=== PATIENT | female | born 1950 | race Caucasian/White ===

== ENCOUNTER → 2017-02-03 | Outpatient (CLI) | payer BC ==
[~2017-02-03] MED LIST: ESTR0.3T PO; FAMO40TA6 PO; LRT5 PO
--- NOTE | 2017-02-11 10:38 | CODING QUERY NO DIAGNOSIS ---
TREATMENT RENDERED WITHOUT A DIAGNOSIS Dr. Reilly, To promote full compliance with coding requirements relating to patient care, physician participation is requested in all cases of medical records coder uncertainty. Please assist us with providing a diagnosis/symptom for the test(s) below: A diagnosis/symptom was not documented on your Order. A valid diagnosis/symptom is required to bill all insurances. Please remember that we are unable to code a diagnosis of rule out, probable, possible, questionable, or suspected. Tests that require a diagnosis: * URINE CULTURE DIAGNOSIS: DATE OF SERVICE: 02/03/17 Provider Signature: Date: Thank you [facility] Information Management Once completed, please kindly fax back to [phone] For questions please call [phone]
== END | disposition home or self-care (01) ==
LOC: C.LABSPEC 11:20
PROVIDERS: ATTEND Family Medicine
DX: N39.0 Urinary tract infection, site not specified (principal)

== ENCOUNTER → 2017-02-04 | Outpatient (CLI) | payer BC ==
[2017-02-04 17:07] LABS: BASO % 0.5 %; BASO ABS # 0.03 K/uL (0-0.2); COMPLETE YES; EOS % 3.1 %; HEMATOCRIT 41.3 % (37-47); IG% 0.2 %; LYMPH % 32.9 %; LYMPH ABS # 2.02 K/uL (1.2-3.4); MEAN CELL VOLUME 94.5 fL (80-100); MEAN CORPUSCULAR HEMOGLOBIN 32.7 pg (25-34); MEAN CORPUSCULAR HGB CONC 34.6 g/dl (32-36); MEAN PLATELET VOLUME 10.9 fL (7.4-10.4); MONO % 6.5 %; NEUT % 56.8 %; PLATELET COUNT 231 K/uL (130-400); RED BLOOD COUNT 4.37 M/uL (4.2-5.4); WHITE BLOOD COUNT 6.14 K/uL (4.8-10.8)
[2017-02-04 17:17] LABS: BLOOD UREA NITROGEN 14 mg/dl (7-18); CREATININE 0.98 mg/dl (0.60-1.20); GLUCOSE 95 mg/dl (70-99)
[2017-02-04 17:18] LABS: ALT/SGPT 18 U/L (12-78); AMYLASE 37 U/L (25-115); BUN/CREATININE RATIO 14.6 (10-20); CARBON DIOXIDE 27 mmol/L (21-32); CHLORIDE 107 mmol/L (98-107); CHOLESTEROL 238 mg/dl (0-200); POTASSIUM 3.9 mmol/L (3.5-5.1); SODIUM 142 mmol/L (136-145); TRIGLYCERIDES 218 mg/dl (0-150); VERY LOW DENSITY LIPOPROT CALC 44 mg/dl
[2017-02-04 17:26] LABS: ALKALINE PHOSPHATASE 58 U/L (45-117); AST/SGOT 13 U/L (15-37); CHOLESTEROL/HDL RATIO 5.1; HDL CHOLESTEROL 47 mg/dl; LDL CHOLESTEROL CALCULATED 147 mg/dl
== END | disposition home or self-care (01) ==
LOC: C.LABBC 12:38
PROVIDERS: ATTEND Family Medicine
DX: R10.10 Upper abdominal pain, unspecified (principal)

== ENCOUNTER → 2017-02-05 | Outpatient (CLI) | payer BC ==
[~2017-02-05] MED LIST changes: +OPTIRAY 320 IV PRN
--- NOTE | 2017-02-05 14:58 | DIAGNOSTIC IMAGING REPORT ---
CT SCAN OF THE ABDOMEN AND PELVIS WITH IV CONTRAST CLINICAL HISTORY: Left upper quadrant abdominal pain. COMPARISON STUDY: No priors. TECHNIQUE: Following the IV administration of 94 cc of Optiray 320, CT scan of the abdomen and pelvis is performed from the lung bases to the proximal femora. Images are reviewed in the axial, sagittal, and coronal planes. IV contrast was administered without complication. Automated dose control exposure was utilized. CT DOSE: 610.90 mGycm FINDINGS: Lung bases: The heart is normal in size and without pericardial effusion. The lung bases are clear. A tiny hiatal hernia is observed. Liver: The contrast-enhanced liver is normal in size, contour, and attenuation. There is no intrahepatic biliary ductal dilatation. The hepatic veins and portal veins are patent. Gallbladder: Calcified gallstones are identified. The gallbladder is otherwise normal in appearance. Spleen: Normal in size and attenuation. Pancreas: Unremarkable. Adrenal glands: Unremarkable. Kidneys: The contrast enhanced kidneys demonstrate mild cortical atrophy and are without hydronephrosis. The kidneys enhance symmetrically. Abdominal vasculature: The abdominal aorta is normal in course and caliber noting moderate atherosclerotic calcification. Bowel: The small bowel and colon are normal in course and caliber. There are scattered colonic diverticula without CT evidence of acute diverticulitis. Mild colonic fecal retention is noted. The appendix is well-visualized and normal. Peritoneum: There is no intraperitoneal free air or abdominal ascites. There is a small fat-containing umbilical hernia. Lymphadenopathy: None. Pelvic viscera: The bladder is normal as visualized. The uterus is surgically absent. A nabothian cyst is noted in the cervix. No adnexal lesion is seen. Skeletal structures: The skeletal structures are osteopenic. No lytic or blastic lesions are seen. There are bilateral pars defects at L5 with 9 mm of anterolisthesis and degenerative change at L5-S1. IMPRESSION: 1. There are no acute infectious or inflammatory findings in the abdomen or pelvis. 2. Cholelithiasis. 3. Additional findings as above. Electronically signed by: Sam Fall M.D. 02/05/2017 2:57 PM Dictated Date/Time: 02/05/2017 2:39 PM
== END | disposition home or self-care (01) ==
LOC: C.CTS 14:18
PROVIDERS: ATTEND Family Medicine
DX: R10.12 Left upper quadrant pain (principal); K80.20 Calculus of gallbladder without cholecystitis without obstruction

== ENCOUNTER 2017-02-28 13:29 | Emergency (ER) | payer BC ==
[~2017-02-28] VITALS: Ht 156.2 cm; Wt 69.0 kg
[~2017-02-28 13:29] MED LIST changes: -FAMO40TA6 PO; -OPTIRAY 320 IV PRN
[2017-02-28 13:39] VITALS: TEMP 36.6; Ht 156.2 cm; Wt 69.0 kg
[2017-02-28] MEDS ORDERED: FAMO40TA6 PO (15:08)
[2017-02-28 15:50] LABS: BASO % 0.6 %; BASO ABS # 0.05 K/uL (0-0.2); COMPLETE YES; EOS % 1.8 %; IG% 0.1 %; LYMPH % 31.2 %; LYMPH ABS # 2.54 K/uL (1.2-3.4); MEAN CELL VOLUME 94.3 fL (80-100); MEAN CORPUSCULAR HEMOGLOBIN 32.5 pg (25-34); MEAN CORPUSCULAR HGB CONC 34.4 g/dl (32-36); MEAN PLATELET VOLUME 10.7 fL (7.4-10.4); NEUT % 61.3 %; PLATELET COUNT 242 K/uL (130-400); RED BLOOD COUNT 4.56 M/uL (4.2-5.4); WHITE BLOOD COUNT 8.13 K/uL (4.8-10.8)
[2017-02-28 15:58] LABS: ALT/SGPT 24 U/L (12-78); AST/SGOT 12 U/L (15-37); BLOOD UREA NITROGEN 14 mg/dl (7-18); BUN/CREATININE RATIO 12.3 (10-20); CALCIUM 8.7 mg/dl (8.5-10.1); CARBON DIOXIDE 29 mmol/L (21-32); CHLORIDE 108 mmol/L (98-107); GLUCOSE 81 mg/dl (70-99); POTASSIUM 3.9 mmol/L (3.5-5.1); SODIUM 141 mmol/L (136-145)
[2017-02-28 16:00] LABS: PARTIAL THROMBOPLASTIN RATIO 0.9; PROTHROMBIN TIME (PATIENT) 10.4 SECONDS (9.0-12.0)
[2017-02-28 16:03] LABS: ALKALINE PHOSPHATASE 64 U/L (45-117)
--- NOTE | 2017-02-28 16:20 | DIAGNOSTIC IMAGING REPORT ---
SINGLE VIEW CHEST CLINICAL HISTORY: Atypical chest pain. FINDINGS: An AP, portable, upright chest radiograph is compared to study dated 10/05/2015. The examination is degraded by portable technique and patient rotation. The cardiomediastinal silhouette is unremarkable. There is bibasilar atelectasis. The lungs and pleural spaces are otherwise clear. No pneumothorax is seen. The skeletal structures are osteopenic. Degenerative change and mild scoliosis are noted in the thoracic spine. IMPRESSION: No acute cardiopulmonary abnormality. Electronically signed by: Sam Fall M.D. 02/28/2017 4:18 PM Dictated Date/Time: 02/28/2017 4:17 PM
--- NOTE | 2017-02-28 17:24 | EMERGENCY ROOM VISIT NOTE ---
History First contact with patient: 14:57 Chief Complaint: CARDIAC ASSESSMENT Stated Complaint: R ARM PAIN SHARP X4 UNDER ARM Nursing Triage Summary: chest heaviness since last week, pt thought it was stress, last night developed Rue pain from axilla to anticube History of Present Illness Patient is a 66-year-old white female who presents to the emergency department for evaluation of chest pain with associated right arm pain. Patient notes that she has had heaviness in her chest for about 3 weeks. She states that it is constant in nature. It is not pleuritic or exertional. She thought it was related to stress. She saw her primary care provider and no workup was performed. She states that he told her if she develops any arm pain then she should go directly to the emergency department. Patient states that since last evening, she has had 4 episodes of a sharp shooting pain in the right arm. She states that it starts in the right axilla and radiates to the right antecubital space. It happened 3 times last evening and once again this afternoon. She states that she was sitting watching television and laying in bed when they occurred. They only lasted her for a few seconds. She denies any associated palpitations, cough, wheezing or shortness of breath. She does have a history of paroxysmal supraventricular tachycardia. She believes that she may have had a cardiac workup in 1999 for the SVT, but nothing since. She has a history of dyslipidemia, but is managing this with lifestyle modifications at this time. She is also on chronic hormone replacement therapy status post hysterectomy. Patient denies any associated lightheadedness, dizziness, nausea, vomiting or abdominal pain. No back pain. She has some intermittent swelling in her ankles , but denies any increased edema in the lower extremities or calf or leg pain. She did drive home from [place] about a month ago, returning February 04. 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 She did take a full strength aspirin today. She states that she has gallstones that were found on CAT scan recently. She has not had any symptoms consistent with biliary colic. Review of Systems Review of systems as per HPI. All other systems reviewed were negative. 10 systems reviewed. Past Medical/Surgical History Medical Problems: (1) Cholelithiasis (2) Hyperlipemia (3) Paroxysmal SVT (supraventricular tachycardia) Surgical Problems: (1) History of hysterectomy Electronic medical records are reviewed and summarized as above/below. See Problem List. Social History Smoking Status: Never Smoker Alcohol Use: occasionally Marital Status: Housing Status: lives with significant other Occupation Status: employed Current/Historical Medications Scheduled Estrogens, Conjugated (Premarin), 0.3 MG PO DAILY Miscellaneous Medications Famotidine (Pepcid), 40 MG PO Allergies Coded Allergies: Cephalosporins (Verified Allergy, Unknown, 02/28/17) Penicillins (Verified Allergy, Unknown, 02/28/17) Tetracyclines (Verified Allergy, Unknown, 02/28/17) Physical Exam Vital Signs Date Time Temp Pulse Resp B/P Pulse Ox O2 Delivery O2 Flow Rate FiO2 02/28/17 17:55 74 18 134/78 99 02/28/17 17:39 72 02/28/17 17:07 72 18 130/81 98 Room Air 02/28/17 15:49 77 18 153/90 98 Room Air 02/28/17 13:39 36.6 85 18 150/99 97 Room Air Physical Exam CONSTITUTIONAL: Patient is a pleasant, well-appearing 66-year-old white female who is awake and alert and in no acute distress. EYES: Pupils equal, round, reactive to light and accommodation. EOMs intact without nystagmus. Sclera are anicteric. ENT: Tympanic membranes intact, with normal landmarks. External canals are clear. Oral and nasopharynx are clear. Mucous membranes are moist, no lesions , tongue and gums appear normal. NECK: No bruits auscultated. Supple without lymphadenopathy. No thyromegaly. No meningeal signs. Full active range of motion without discomfort. CARDIOVASCULAR: Regular rate and rhythm, with normal S1 and S2, no murmur or gallop or rub is heard. No carotid bruits auscultated. No JVD. Peripheral pulses easy to palpable. RESPIRATORY: Breath sounds equal and clear to auscultation without wheezes, rales, or rhonchi heard. Full and equal chest expansion without accessory muscle use or retractions. GI: Bowel sounds are present. Abdomen is soft, nontender, nondistended. No organomegaly. No pulsatile masses. No guarding or rebound. MUSCULOSKELETAL: Full range of motion of extremities x 4 with good strength. No cyanosis, edema, joint tenderness or swelling. No deformity. INTEGUMENTARY: No lesions or rash, normal skin turgor. NEUROLOGICAL: Alert, oriented, and cooperative. Cranial nerves, sensation and strength grossly intact. Pupils round, equal, and react to light, EOMs are full. LYMPH: No lymphadenopathy. Medical Decision & Procedures ER Provider Diagnostic Interpretation: SINGLE VIEW CHEST CLINICAL HISTORY: Atypical chest pain. FINDINGS: An AP, portable, upright chest radiograph is compared to study dated 10/05/2015. The examination is degraded by portable technique and patient rotation. The cardiomediastinal silhouette is unremarkable. There is bibasilar atelectasis. The lungs and pleural spaces are otherwise clear. No pneumothorax is seen. The skeletal structures are osteopenic. Degenerative change and mild scoliosis are noted in the thoracic spine. IMPRESSION: No acute cardiopulmonary abnormality. Laboratory Results 02/28/17 14:40 Red Blood Count 4.56, Mean Corpuscular Volume 94.3, Mean Corpuscular Hemoglobin 32.5, Mean Corpuscular Hemoglobin Concent 34.4, Mean Platelet Volume 10.7, Neutrophils (%) (Auto) 61.3, Lymphocytes (%) (Auto) 31.2, Monocytes (%) (Auto) 5.0, Eosinophils (%) (Auto) 1.8, Basophils (%) (Auto) 0.6, Neutrophils # (Auto) 4.97, Lymphocytes # (Auto) 2.54, Monocytes # (Auto) 0.41, Eosinophils # (Auto) 0.15, Basophils # (Auto) 0.05 02/28/17 14:40 Test 02/28/17 14:40 02/28/17 15:43 02/28/17 17:09 White Blood Count 8.13 K/uL (4.8-10.8) Red Blood Count 4.56 M/uL (4.2-5.4) Hemoglobin 14.8 g/dL (12.0-16.0) Hematocrit 43.0 % (37-47) Mean Corpuscular Volume 94.3 fL (80-100) Mean Corpuscular Hemoglobin 32.5 pg (25-34) Mean Corpuscular Hemoglobin Concent 34.4 g/dl (32-36) Platelet Count 242 K/uL (130-400) Mean Platelet Volume 10.7 fL (7.4-10.4) Neutrophils (%) (Auto) 61.3 % Lymphocytes (%) (Auto) 31.2 % Monocytes (%) (Auto) 5.0 % Eosinophils (%) (Auto) 1.8 % Basophils (%) (Auto) 0.6 % Neutrophils # (Auto) 4.97 K/uL (1.4-6.5) Lymphocytes # (Auto) 2.54 K/uL (1.2-3.4) Monocytes # (Auto) 0.41 K/uL (0.11-0.59) Eosinophils # (Auto) 0.15 K/uL (0-0.5) Basophils # (Auto) 0.05 K/uL (0-0.2) RDW Standard Deviation 47.5 fL (36.4-46.3) RDW Coefficient of Variation 13.8 % (11.5-14.5) Immature Granulocyte % (Auto) 0.1 % Immature Granulocyte # (Auto) 0.01 K/uL (0.00-0.02) Prothrombin Time 10.4 SECONDS (9.0-12.0) Prothromb Time International Ratio 1.0 (0.9-1.1) Activated Partial Thromboplast Time 23.6 SECONDS (21.0-31.0) Partial Thromboplastin Ratio 0.9 Anion Gap 4.0 mmol/L (3-11) Est Creatinine Clear Calc Drug Dose 46.5 ml/min Estimated GFR () 61.4 Estimated GFR (Non- 53.0 BUN/Creatinine Ratio 12.3 (10-20) Calcium Level 8.7 mg/dl (8.5-10.1) Total Bilirubin 0.4 mg/dl (0.2-1) Aspartate Amino Transf (AST/SGOT) 12 U/L (15-37) Alanine Aminotransferase (ALT/SGPT) 24 U/L (12-78) Alkaline Phosphatase 64 U/L (45-117) Total Creatine Kinase 55 U/L (26-192) Creatine Kinase MB < 0.5 ng/ml (0.5-3.6) Creatine Kinase MB Ratio (0-3.0) Total Protein 8.0 gm/dl (6.4-8.2) Albumin 4.0 gm/dl (3.4-5.0) Globulin 4.0 gm/dl (2.5-4.0) Albumin/Globulin Ratio 1.0 (0.9-2) Lipase 157 U/L (73-393) Bedside D-Dimer 163 ng/mlFEU (0-450) Bedside Troponin I 0.000 ng/ml (0-0.045) ECG Indication: chest pain Rhythm: sinus rhythm Findings: no acute ischemic change, other (shortened LA interval at 110ms) Change: no significant change ED Course The patient was seen and evaluated as above. Her old records were reviewed. IV access was obtained and laboratory studies were collected. EKG was performed and was as noted above. Chest x-ray was obtained and was unremarkable. CBC with differential, coags, cardiac enzymes CMP, and d-dimer were drawn. Laboratory studies revealed a normal white count. She is not anemic. Coags are normal. D-dimer was not elevated. Given this, further workup for PE was not pursued. Electrolytes are within normal limits. Renal functions are normal. Liver functions and lipase are not elevated. CK and CK-MB are normal and 0 and 90 minute troponins are negative. All laboratory and diagnostic imaging studies were reviewed with attending physician, and discussed with the patient and her at length. Close follow-up with her primary care provider for further care and management and referral to cardiology was advised. She is best understanding of this and was agreeable. She is discharged home in good condition. Vital signs were stable at discharge. Differential diagnosis includes acute myocardial infarction, acute coronary syndrome, myocarditis, pericarditis, pericardial effusions /tamponade, esophageal perforation, pulmonary embolism, pneumonia, pneumothorax, cardiomyopathy, congestive heart failure, anemia , COPD/asthma exacerbation, musculoskeletal, anxiety, costochondritis, DVT, cervical radiculopathy, among others. Medical Decision See ED Course. Impression Primary Impression: Chest pressure Additional Impression: Right arm pain Departure Information Referrals Jean Reilly M.D. (PCP) Patient Instructions My [facility] Additional Instructions Ibuprofen(Motrin, Advil) may be used for fever or pain. Use 600mg every six hours as needed. Take with food. Avoid using more than 2400mg in a 24 hour period. Do not use 2400mg per day for more than three consecutive days without physician direction. Prolonged inappropriate use can lead to stomach upset or ulcers. (AND/OR) Acetaminophen(Tylenol) may be used for fever or pain. Use 1000mg every six hours as needed. Avoid using more than 3000mg in a 24 hour period. Rest and drink plenty of fluids as tolerated. Continue current medications. Avoid strenuous activities and anything that worsens your pain. Resume normal activities once your symptoms resolve. Return to the ER immediately for worsening or persistent chest pain, abdominal pain, vomiting, fevers, chest pains, difficulty breathing, worsening of your condition, or as needed. Follow up with your primary physician in 2-3 days for a recheck of your current condition and to schedule outpatient cardiac workup.. Problem Qualifiers
[2017-02-28 17:55] VITALS: BP 134/78; PULSE 74; O2SAT 99
== END 2017-02-28 17:57 | disposition home or self-care (01) ==
LOC: C.EDB 13:31 → C.EDC 17:57
DX: R07.9 Chest pain, unspecified (principal); M79.601 Pain in right arm; E78.5 Hyperlipidemia, unspecified; Z87.19 Personal history of other diseases of the digestive system; Z90.710 Acquired absence of both cervix and uterus; Z79.899 Other long term (current) drug therapy; Z88.0 Allergy status to penicillin; Z88.2 Allergy status to sulfonamides; Z88.8 Allergy status to other drugs, medicaments and biological substances

== ENCOUNTER → 2017-04-29 | Outpatient (CLI) | payer BC ==
[~2017-04-29] MED LIST changes: +FAMO40TA6 PO; -LRT5 PO
[2017-04-29 18:26] LABS: MANUAL MICROSCOPIC REQUIRED? YES; URINE APPEARANCE CLOUDY (CLEAR); URINE BILIRUBIN NEG (NEG); URINE COLOR YELLOW; URINE NITRITE NEG (NEG); URINE SPECIFIC GRAVITY >= 1.030 (1.000-1.030); UROBILINOGEN NEG (NEG)
[2017-04-29 18:29] LABS: REVIEW REQ? NO
[2017-04-29 18:45] LABS: URINE BACTERIA 3+ (NEG); URINE RBC >30 /hpf (0-4); URINE WBC >30 /hpf (0-5)
== END | disposition home or self-care (01) ==
LOC: C.LABSPEC 17:32
PROVIDERS: ATTEND Physician Assistant
DX: R36.9 Urethral discharge, unspecified (principal); N89.8 Other specified noninflammatory disorders of vagina

== ENCOUNTER → 2017-08-11 | Outpatient (CLI) | payer BC | END | disposition home or self-care (01) | LOC: C.LABSPEC 13:27 | PROVIDERS: ATTEND Obstetrics & Gynecology | DX: N89.8 Other specified noninflammatory disorders of vagina (principal) ==

== ENCOUNTER → 2017-08-11 | Outpatient (CLI) | payer BC | END | disposition home or self-care (01) | LOC: C.PAPS 15:08 | PROVIDERS: ATTEND Obstetrics & Gynecology | DX: Z01.419 Encounter for gynecological examination (general) (routine) without abnormal findings (principal) ==

== ENCOUNTER → 2017-08-20 | Outpatient (CLI) | payer BC ==
[2017-08-20 18:18] LABS: URINE APPEARANCE CLOUDY (CLEAR); URINE BILIRUBIN NEG (NEG); URINE COLOR YELLOW; URINE EPITHELIAL CELL AUTO >30 /lpf (0-5); URINE NITRITE NEG (NEG); URINE PH 5.5 (4.5-7.5); URINE SPECIFIC GRAVITY 1.012 (1.000-1.030); UROBILINOGEN NEG (NEG)
[2017-08-20 18:33] LABS: MANUAL MICROSCOPIC REQUIRED? NO; REVIEW REQ? NO
== END | disposition home or self-care (01) ==
LOC: C.LAB1850 14:07
PROVIDERS: ATTEND Obstetrics & Gynecology
DX: N39.0 Urinary tract infection, site not specified (principal)

== ENCOUNTER → 2017-09-10 | Outpatient (CLI) | payer BC ==
--- NOTE | 2017-09-10 17:14 | DIAGNOSTIC IMAGING REPORT ---
CHEST 2 VIEWS ROUTINE HISTORY: 66 years-old Female CHEST PAIN acute atypical chest pain for 2 months COMPARISON: Chest radiograph 02/28/2017 TECHNIQUE: Frontal and lateral views of the chest FINDINGS: Cardiomediastinal and hilar silhouettes are within normal limits. No pneumothorax, pleural effusion, focal airspace consolidation or overt pulmonary edema. The bones of the chest are grossly intact. IMPRESSION: No acute cardiopulmonary process. The above report was generated using voice recognition software. It may contain grammatical, syntax or spelling errors. Electronically signed by: Sudhir Aranda M.D. 09/10/2017 5:13 PM Dictated Date/Time: 09/10/2017 5:12 PM
== END | disposition home or self-care (01) ==
LOC: C.RAD 16:49
PROVIDERS: ATTEND Family Medicine
DX: R07.9 Chest pain, unspecified (principal)

== ENCOUNTER → 2017-10-07 | Outpatient (CLI) | payer BC ==
--- NOTE | 2017-10-07 16:05 | EXERCISE STRESS ECHO ---
*NOTICE TO RECEIVING [employer] This information is strictly Confidential and protected under [place] law. [place] law prohibits you from making any further disclosure of this information unless further disclosure is expressly permitted by the written consent of the person to whom it pertains or is authorized by law. A general authorization for the release of medical or other information is not sufficient for this purpose. Hospital accepts no responsibility if the information is made available to any other person, INCLUDING THE PATIENT. Interpretation Summary * Name: KATIE KEARNEY Study Date: 10/07/2017 09:41 AM BP: 120/76 mmHg * Patient Location: [facility] HR: 71 * : 1950 (M/d/yyyy) Gender: Female Height: 61 in * Age: 66 yrs Ethnicity: CA Weight: 140 lb * Ordering Physician: Jean Reilly * Referring Physician: Jean Reilly * Performed By: Nikkie Lorenzo RDCS * * Reason For Study: CHEST DISCOMFORT * BSA: 1.6 m2 * -- Conclusions -- * Left ventricular systolic function is normal. * Grade I diastolic dysfunction, (abnormal relaxation pattern). * Diagnostic stress echocardiogram demonstrating poor exercise tolerance but EKG changes and subtle wall motion abnormalities concerning for inducible ischemia. Procedure Details * A contrast injection of Definity was performed to improve assessment of LV function. * Contrast was injected into an intravenous site in the left arm. * One vial of Definity ultrasound contrast was diluted in normal saline to a total volume of 10 ml. A total of '4' ml of solution was administered during imaging. * Lot # [id number] of Definity utilized for procedure. * Expiration date NOV 03. * The attending nurse who injected the contrast agent was IVÁN SKINNER RN. Left Ventricular Findings with Stress * Diagnostic stress echocardiogram demonstrating poor exercise tolerance but EKG changes and subtle wall motion abnormalities concerning for inducible ischemia. Left Ventricle * The left ventricle is normal in size. * There is normal left ventricular wall thickness. * Ejection Fraction = 55-60%. * Left ventricular systolic function is normal. * Grade I diastolic dysfunction, (abnormal relaxation pattern). * The left ventricular wall motion is normal at rest. Right Ventricle * The right ventricle is normal in size and function. Atria * The left atrial size is normal. * Right atrial size is normal. Mitral Valve * The mitral valve anatomy is normal. * Significant mitral regurgitation is absent. Tricuspid Valve * The tricuspid valve is not well visualized, but is grossly normal. * Significant tricuspid regurgitation is absent. Aortic Valve * The aortic valve is normal in structure and function. * The aortic valve is trileaflet. * No hemodynamically significant valvular aortic stenosis. * There is no significant aortic regurgitation. Great Vessels * The aortic root is normal size. Pericardium * There is no pericardial effusion. Stress Parameters * Normal baseline electrocardiogram. * There is [address] depression at peak exertion * The stress portion of this study was personally supervised by the undersigned interpreting physician. * Rest heart rate was '71' BPM. * Rest blood pressure was '120/76' * Maximum heart rate achieved was 181 bpm. * Maximum heart rate was 116 % of maximum age-predicted heart rate. * Maximum blood pressure was '165/76' * Total exercise time was '4:30' * Maximum exercise MET level achieved was '6.40' METS * Maximum treadmill speed was '2.50' miles per hour. * Maximum treadmill elevation was '12.00'% grade. * Exercise was terminated due to 'ACHIEVING TARGET HR' Left Ventricular Findings with Stress * Baseline EKG was normal Was development of some flattened ST segments at peak exertion which resolved quickly in recovery Baseline echocardiographic images demonstrate normal function and wall motion At peak exertion there did seem to be some mild hypokinesis of the anterior apex Poor exercise tolerance Accelerated heart rate response to exercise Normal blood pressure response to exercise Patient did developed very mild chest discomfort at peak exertion which resolved rapidly in recovery Reeder treadmill score: -4.5 (moderate risk) MMode 2D Measurements and Calculations IVSd 0.67 cm IVSs 1.1 cm LVIDd 4.4 cm LVIDs 2.9 cm LVPWd 0.80 cm LVPWs 1.2 cm IVS/LVPW 0.84 FS 32.6 % EDV(Teich) 85.6 ml ESV(Teich) 33.1 ml EF(Teich) 61.3 % EDV(cubed) 82.6 ml ESV(cubed) 25.2 ml EF(cubed) 69.4 % % IVS thick 62.2 % % LVPW thick 54.0 % LV mass(C)d 96.4 grams LV mass(C)dI 59.4 grams/m\S\2 LV mass(C)s 100.2 grams LV mass(C)sI 61.7 grams/m\S\2 SV(Teich) 52.4 ml SI(Teich) 32.3 ml/m\S\2 SV(cubed) 57.3 ml SI(cubed) 35.3 ml/m\S\2 Ao root diam 2.9 cm Ao root area 6.5 cm\S\2 LA dimension 3.5 cm LA/Ao 1.2 LVAd ap4 24.2 cm\S\2 LVLd ap4 6.9 cm EDV(MOD-sp4) 71.0 ml EDV(sp4-el) 72.4 ml LVAs ap4 14.7 cm\S\2 LVLs ap4 5.9 cm ESV(MOD-sp4) 34.1 ml ESV(sp4-el) 31.1 ml EF(MOD-sp4) 51.9 % EF(sp4-el) 57.0 % LVAd ap2 20.0 cm\S\2 LVLd ap2 6.8 cm EDV(MOD-sp2) 49.7 ml EDV(sp2-el) 50.2 ml LVAs ap2 12.1 cm\S\2 LVLs ap2 5.8 cm ESV(MOD-sp2) 22.3 ml ESV(sp2-el) 21.3 ml EF(MOD-sp2) 55.2 % EF(sp2-el) 57.6 % LVLd %diff -1.30 % EDV(MOD-bp) 59.6 ml LVLs %diff -20 % ESV(MOD-bp) 27.3 ml EF(MOD-bp) 54.2 % SV(MOD-sp4) 36.9 ml SI(MOD-sp4) 22.7 ml/m\S\2 SV(MOD-sp2) 27.4 ml SI(MOD-sp2) 16.9 ml/m\S\2 SV(MOD-bp) 32.3 ml SI(MOD-bp) 19.9 ml/m\S\2 SV(sp4-el) 41.3 ml SI(sp4-el) 25.4 ml/m\S\2 SV(sp2-el) 28.9 ml SI(sp2-el) 17.8 ml/m\S\2 Doppler Measurements and Calculations MV E max daniel 65.7 cm/sec MV A max daniel 72.9 cm/sec MV E/A 0.90 MV dec time 0.18 sec Ao V2 max 89.9 cm/sec Ao max PG 3.2 mmHg Ao max PG (full) 0.25 mmHg LV V1 max PG 3.0 mmHg LV V1 max 86.4 cm/sec
== END | disposition home or self-care (01) ==
LOC: C.CPL 09:35
PROVIDERS: ATTEND Family Medicine
DX: R07.9 Chest pain, unspecified (principal); I50.30 Unspecified diastolic (congestive) heart failure

== ENCOUNTER 2017-12-04 17:01 | Emergency (ER) | payer OTHER ==
[~2017-12-04] VITALS: Ht 157.5 cm; Wt 70.0 kg
[~2017-12-04 17:01] MED LIST changes: -ACETAMINOPHEN 325 MG TAB PO PRN; -AMLODIPINE BESYLATE 5 MG TAB ONE; -ATROPINE SULFATE 0.1 MG/ML 5ML SYR IV PRN; -FENTANYL CITRATE INJ 50 MCG/1 ML 2 ML VIAL ONE; -HEPARIN SOD (PORCINE) 1000 UNIT/ML 10 ML VIAL ONE; -MIDAZOLAM HCL 1 MG/ML 2ML VIAL ONE; -NITROGLYCERIN 0.4 MG SL PER TAB CHARGE SL PRN; -NITROGLYCERIN/D5W 100MCG/ML 20ML SYR ONE; -NiCARDipine HCL INJ 2.5 MG/ML 10 ML AMP ONE; -SODIUM CHLORIDE 0.9% 1000ML 1,000 ML IV SCH; -SODIUM CHLORIDE 0.9% 1000ML 250 ML IV PRN
[2017-12-04 17:03] VITALS: TEMP 36.3; Ht 157.5 cm; Wt 70.0 kg
[2017-12-04] MEDS ORDERED: HYDROCODONE/ACETAMOPHEN 5/325MG TAB PO STA (17:35)
[2017-12-04] MEDS ORDERED: HYDROmorphone INJ 1 MG/ML SYR IM STA (18:42)
[2017-12-04 20:30] VITALS: BP 121/68; PULSE 69; O2SAT 93
[2017-12-04] MEDS ORDERED: NORCO 5/325MG HOME PACK PO ONE (20:30)
--- NOTE | 2017-12-04 22:58 | EMERGENCY ROOM VISIT NOTE ---
History Report prepared by Benoit: Kalin Martins Under the Supervision of: Dr. Ok Uribe M.D. First contact with patient: 17:13 Chief Complaint: BLEEDING Stated Complaint: CARDIAC CATH TODAY-BLEEDING AT SITE Nursing Triage Summary: Pt had Cardiac Cath today, states they tried to go through right wrist without success, states she noticed drsg has blood on it, and is still bleeding, pt marked site with a pen, some blood noted out of marking of pen, states she had pain afterwards and the gave her Phenergan, states pain an 8 out of 10, call dunn within reach History of Present Illness The patient is a 66 year old female who presents to the Emergency Room with complaints of bleeding following a cardiac catheterization that the patient noticed at 1600, 1.5 hours prior to arrival. The patient is also complaining of pain in the right forearm. She describes it as "very painful." The patient tried to contact Dr. Chappell who performed the catheterization, but he instructed her to follow her discharge protocol and come to the Emergency Department. The catheterization was at 0830 this morning. at 1200 she was given Fentanyl and Tylenol, post-op. 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 A total of 6 systems were reviewed and were otherwise negative. Past Medical & Surgical Medical Problems: (1) Cholelithiasis (2) Hyperlipemia (3) Paroxysmal SVT (supraventricular tachycardia) Surgical Problems: (1) History of hysterectomy Social History Smoking Status: Never Smoker Alcohol Use: occasionally Marital Status: Housing Status: lives with significant other Occupation Status: employed Current/Historical Medications Scheduled Amlodipine Besylate (Amlodipine Besylate), 2.5 MG PO DAILY Aspirin (Aspirin Ec), 81 MG PO DAILY Atorvastatin (Lipitor), 10 TAB PO DAILY Estrogens, Conjugated (Premarin), 0.3 MG PO DAILY Famotidine (Pepcid), 40 MG PO DAILY Metoprolol Succinate (Toprol Xl), 12.5 TAB PO DAILY Allergies Coded Allergies: Sulfamethoxazole w/Trimethoprim (Verified Allergy, Intermediate, RASH, ) Cephalosporins (Verified Allergy, Unknown, 02/28/17) Penicillins (Verified Allergy, Unknown, 02/28/17) Tetracyclines (Verified Allergy, Unknown, 02/28/17) Physical Exam Vital Signs Date Time Temp Pulse Resp B/P (MAP) Pulse Ox O2 Delivery O2 Flow Rate FiO2 12/04/17 20:30 69 121/68 93 12/04/17 19:28 95 Room Air 12/04/17 19:26 69 16 134/81 95 Room Air 12/04/17 17:03 36.3 81 16 145/83 97 Room Air Physical Exam GENERAL: Awake, alert, well-appearing, in no distress HENT: Normocephalic, atraumatic. Oropharynx unremarkable. EYES: Normal conjunctiva. Sclera non-icteric. NECK: Supple. RESPIRATORY: Clear to auscultation. CARDIAC: Regular rate, normal rhythm. Extremities warm and well perfused. Pulses equal. MUSCULOSKELETAL: There is a puncture site to the right radius, aspect of the wrist is without active bleeding at the moment. Chest examination reveals no tenderness. The back is symmetrical on inspection without obvious abnormality. There is no CVA tenderness to palpation. No joint edema. NEURO: Normal sensorium. No sensory or motor deficits noted. SKIN: No rash or jaundice noted. Medical Decision & Procedures Medications Administered Medications (Trade) Dose Ordered Sig/Iftikhar Route Start Time Stop Time Status Last Admin Dose Admin Acetaminophen/ Hydrocodone Bitart ([place] 5/325 Tab) 2 tab NOW STAT PO 12/04/17 17:35 12/04/17 17:36 DC 12/04/17 17:47 2 TAB Hydromorphone HCl (Dilaudid Inj) 1 mg NOW STAT IM 12/04/17 18:42 12/04/17 18:44 DC 12/04/17 19:05 1 MG ED Course 1718: The patient was evaluated in room D6. A complete history and physical exam was performed. 1734: Ordered Hydrocodone 2 tablets PO. 1737: I discussed the case with Dr. Chappell - Welding Machine Operator Arc who performed procedure. He suggest pain mediation and limited use of the arm. 1841: Ordered Dilaudid 1 mg IM 2025: I reevaluated the patient. Discussed results and discharge instructions: She verbalized understanding and agreement. The patient is ready for discharge. 2029: Ordered Hydrocodone 1 homepack Medical Decision The patient presented to the emergency department because of pain in her right wrist after cardiac catheterization. She has some scant bleeding on the dressing. There is no large hematoma. The patient had no active bleeding. She was observed. She was given 2 hydrocodone but still had pain. She was treated with an IM dose of Dilaudid and monitor. She did very well this. Her pain was controlled. I did consult with her aix system administrator, Dr. Chappell. He recommended pain control. He noted that the patient's procedure in the right wrist could not be completed secondary to vasospasm. The patient has good capillary refill and a palpable ulnar pulse. She has no signs of ischemia in the hand. She is neurovascularly intact in the hand. The patient was placed in an arm sling and Dr. Chappell agreed. He asked for her to follow all shortness previously outlined. The patient felt comfortable with this. The patient and her were pleased with the treatment. By the evaluation outlined above other emergent etiologies such as those listed in the differential, as well as others, were deemed relatively unlikely. The patient was educated about the findings as listed above. All questions were answered and the patient was pleased with the treatment. Return instructions were outlined and the patient was discharged in stable condition. The patient was referred to cardiology for follow-up for a recheck of the current condition. Consults Time Called: 1731 Consulting Physician: Dr. Chappell - Welding Machine Operator Arc Returned Call: 1737 I discussed the case with Dr. Chappell - Welding Machine Operator Arc who performed procedure. He suggest pain mediation and limited use of the arm. Impression Primary Impression: Right wrist pain Additional Impression: Status post cardiac catheterization Scribe Attestation The scribe's documentation has been prepared under my direction and personally reviewed by me in its entirety. I confirm that the note above accurately reflects all work, treatment, procedures, and medical decision making performed by me. Departure Information Dispostion Home / Self-Care Referrals Jean Reilly M.D. (PCP) Forms HOME CARE DOCUMENTATION FORM, IMPORTANT VISIT INFORMATION Patient Instructions My [facility] Additional Instructions Hydrocodone/acetaminophen 5/325mg: Take 1-2 pills every 6 hours as needed for pain. Avoid additional Acetaminophen/Tylenol, alcohol, operating machinery or dangerous equipment, working on ladders or roofs, DRIVING, or situations where being under the influence may be dangerous. Follow all instructions given to by Dr. Chappell. Use the arm sling as need for comfort. Return to the ER immediately for spreading redness, fevers, pus-like drainage, severe pain, or as needed. Problem Qualifiers
== END 2017-12-04 22:00 | disposition home or self-care (01) ==
LOC: C.EDB 17:02 → C.EDD 22:00
DX: M25.531 Pain in right wrist (principal); Z98.890 Other specified postprocedural states; E78.5 Hyperlipidemia, unspecified; I47.1 Supraventricular tachycardia; Z90.710 Acquired absence of both cervix and uterus; Z79.899 Other long term (current) drug therapy; Z79.82 Long term (current) use of aspirin

== ENCOUNTER → 2017-12-04 | Day surgery (SDC) | payer OTHER ==
[~2017-12-04] VITALS: Ht 157.5 cm; Wt 68.0 kg
[~2017-12-04] MED LIST changes: +ACETAMINOPHEN 325 MG TAB PO PRN; +AMLODIPINE BESYLATE 5 MG TAB ONE; +ASPI81TA28 PO; +ATOR-54 PO; +ATROPINE SULFATE 0.1 MG/ML 5ML SYR IV PRN; +FENTANYL CITRATE INJ 50 MCG/1 ML 2 ML VIAL ONE; +HEPARIN SOD (PORCINE) 1000 UNIT/ML 10 ML VIAL ONE; +METO25TA3 PO; +MIDAZOLAM HCL 1 MG/ML 2ML VIAL ONE; +NITROGLYCERIN 0.4 MG SL PER TAB CHARGE SL PRN; +NITROGLYCERIN/D5W 100MCG/ML 20ML SYR ONE; +NRV5 PO; +NTRSL3 UT; +NiCARDipine HCL INJ 2.5 MG/ML 10 ML AMP ONE; +SODIUM CHLORIDE 0.9% 1000ML 1,000 ML IV SCH; +SODIUM CHLORIDE 0.9% 1000ML 250 ML IV PRN
[2017-12-04 07:18] VITALS: BP 123/79; PULSE 67; TEMP 36.5; O2SAT 97; Ht 157.5 cm; Wt 68.0 kg
--- NOTE | 2017-12-04 08:35 | History and Physical ---
History & Physical Date of Service Dec 04, 2017. History & Physical CLINIC NOTES [facility] [address] [place] [address] KATIE KEARNEY MR #[id number] : ~1950 CARDIOLOGY OUTPATIENT CLINIC NOTE 12/04/2016 REFERRING: ~Dr. Jean Reilly. INDICATIONS: ~Chest pain, abnormal stress test. HPI: ~Patient is a 66-year-old female without prior documented cardiac disease, whose history per records and review of data is notable for borderline hypertension, mild hyperlipidemia, and approximately 8 months history of intermittent chest pressure, pain, discomfort by her description. ~Symptoms have some atypical features including right arm pain radiating to the elbow. ~ Due to ongoing and persistent complaints, she was referred and ~underwent stress echocardiography on 10/07/2017. ~At that time, patient exercised to a moderate level workload, only achieving 4 minutes and 30 seconds on a Tho protocol while experiencing chest pressure and discomfort. ~At peak exertion, there were stress-induced ST-segment changes which resolved promptly in the recovery phase. ~Echocardiogram was notable for subtle hypokinesis of the apex at peak stress. ~There was accelerated heart rate in ~response to exercise and typical chest discomfort at peak exertion. ~The patient is referred now for ongoing evaluation. ~The patient notes over the past month's time some increase in overall symptoms occurring with exertion. ~Notes no rest complaints. ~Notes no tachy-palpitations, syncope, near-syncope. ~Notes no orthopnea, PND, or peripheral edema. ~She was begun on aspirin, atorvastatin, Toprol, and feels that has aided in complaints. ~She ~notes no unexplained fevers or infections. ~ Notes no rash, arthritic complaint. ~Notes no prior reaction to IV contrast exposure. REVIEW OF SYSTEMS: ~Otherwise negative. ALLERGIES: ~Listed as cephalosporins, penicillin, tetracycline. MEDICATIONS: ~ Current Outpatient Prescriptions Medication Sig Dispense Refill famotidine (PEPCID) 40 MG Tablet Take 40 mg by mouth daily. estrogens conjugated (PREMARIN) 0.3 MG Tablet Take 0.3 mg by mouth daily. Aspirin 81 MG Tablet Take 81 mg by mouth daily. atorvaSTATin (LIPITOR) 20 MG Tablet metoprolol succinate XL (TOPROL XL) 25 MG TB24 nitroglycerin (NITROSTAT) 0.3 MG SL tablet PAST SURGICAL HISTORY: ~Notable for right tear duct lacrimal gland excision, prior supravaginal hysterectomy with BSO, and remote tonsillectomy. FAMILY HISTORY: ~Notable for rheumatic valvular disease in her mother. SOCIAL HISTORY: ~Patient resides in [place]. ~She works as a nurse in Radiation Therapy. ~She is at [employer]. ~She is a nonsmoker, occasional alcohol drinker with 4 to 5 glasses of wine per week. PHYSICAL EXAMINATION: ~Heart rate 66. ~Blood pressure is 128/76, equal in both arms. ~HEENT exam is normocephalic and atraumatic. ~Nares without discharge. ~ Pupils equal, round, reactive to light. ~Arterial widening minimal is notable. ~ Nares without discharge. ~Throat was clear. ~Neck was supple without thyromegaly , lymphadenopathy. ~There was no carotid bruits. ~Lungs are clear to auscultation. ~Cardiovascular exam is regular with normal S-1, ~S-2. ~There is no murmur, gallop, or rub. ~PMI is nondisplaced. ~Abdomen: ~Soft, nontender. ~ There is no palpable hepatosplenomegaly. ~There is no hepatojugular reflux. ~ Extremities without cyanosis or clubbing. ~There is no peripheral edema. ~There are intact distal pulses. DATA: ~EKG reveals sinus rhythm with short P-R interval, rate 66. ~Stress echocardiography as per HPI. ~In addition, in description patient received Definity contrast for augmentation imaging. ~The patient exercised for 4 minutes and 30 seconds on a Tho protocol with accelerated heart rate response , the patient's heart rate increasing to 181, 116% age-predicted maximal level workload. ~Blood pressure response was appropriate. ~As noted, there ~was a [address] flattening at peak exertion which promptly returned to baseline. ~Subtle apical wall motion abnormality suggested. ~Overall, systolic function was normal at rest without significant valvular disease. LABORATORY STUDIES: ~Laboratory studies last available from February 2017 demonstrated normal electrolytes and renal function. ~Lipid panel done in January 2017 demonstrated a total cholesterol of 238, triglyceride level of 218, LDL of 147, HDL of 47. ~TSH was 1.49. IMPRESSION: ~66-year-old female with history of borderline hypertension, hyperlipidemia, with intermittent chest discomfort with some atypical features since February 2017. ~Due to gradual increase in symptom characteristics suggestive of ischemic disease, she underwent stress echocardiography which was mildly positive, though at moderate level workload, and poor exercise tolerance demonstrated. ~She has been appropriately begun on aspirin, beta ~mazin, statin, and sublingual nitroglycerin PRN. Discussed options of management as she notes she can still elicit symptoms, though with higher level workload since beta mazin begun. ~Will recommend undergoing diagnostic cardiac catheterization. ~Timing of the procedure was discussed in detail. ~Anticipate proceeding with the study on 12/04/2017 at [facility] unless symptoms progress. ~Procedure and risks of cardiac ~catheterization explained in detail. ~Additional risks of coronary intervention also discussed if indicated. ~She ~will report any new symptoms or complaints in the interim with further recommendations pending the results of studies. Zach Chappell MD Department of Cardiology [facility] [facility] 12/04/2017 Patient seen and examined no changes, plan as above. SDH
--- NOTE | 2017-12-04 08:57 | Pre Sedation Assessment ---
Pre Sedation Assessment General Date of Sedation: Dec 04, 2017. Vital Signs Past 12 Hours Date Time Temp Pulse Resp B/P (MAP) Pulse Ox O2 Delivery O2 Flow Rate FiO2 12/04/17 07:18 36.5 67 16 123/79 (94) 97 Room Air Review Cardiovascular: regular rate, rhythm, no edema Lungs: chest non-tender, lungs clear Pre-Sedation Airway Assessment Smoking Status: Never Smoker Hx of Sleep Apnea: No Short Thick Neck: No Thyro-mental Distance: > 3 Finger Breadths Oral Cavity: WNL Mallampati Classification: Class III ASA Classification: Class II NPO Status Date of Last Intake of Fluids: Dec 03, 2017 Date of Last Intake of Solids: Dec 03, 2017 Procedure Planning Contraindications for Sedation: None Current Medications Reviewed: Yes Notes The planned sedation has been discussed with the patient. Informed Consent was obtained. I have identified the patient, determined the appropriateness of sedation and have assessed the patient immediately prior to the procedure. All medicine(s) and interventions are by my order.
--- NOTE | 2017-12-04 10:31 | Cardiac Catheterization ---
Procedure Note Procedure Date Dec 04, 2017. Pre-Procedure Diagnosis Angina, Positive Stress Test AUC Score 7 Post-Procedure Diagnosis Normal Coronary Arteries Procedure(s) Performed Coronary Angiography, Left Heart Cath, LV Angiography Auto Painter Dr. Zach Chappell Personal Care Assistant(s) Atilio Estimated Blood Loss <20cc Medication(s) Fentanyl (12.5 mcg IV x 2), Nicardipine (250mcg intraarterial after sheath insertion and prior to sheath removal), Nitroglycerin (200mcg intraarterial), Versed (1mg IV), Lidocaine 1% (local infiltration) Summary of Findings Right dominant coronary anatomy without disease Small caliber vessels LM short, trifurcates no disease LAD Type 2 short, no disease RAMUS moderately large sized without disease reaches apex LCX non dominant with large OM, moderate PL no disese RCA Dominant, no disease, large PDA, 2 small PV LV normal EF 65 % LVEDP 6 Unsuccessful radial approach due catheter induce arterial spasm Hemodynamics Rest Ao: 106/59/79 Final Ao: 103/52/74 LV: 112/0/6 Recommendations Medical therapy and/or Counseling Specimens None Radiation Exposure (mGy) 617 Contrast (mls) 106 Fluids (cc crystalloids) 125 Anesthesia Start 0904 Stop 0948 M Brennan ROWE Procedural Complication(s) None Disposition Social Service Manager Holding/Recovery ACC Data Cardiac Status Clinical evaluation leading to the procedure CAD Presntation: Positive Stress Test Anginal Classification: CCS III Heart Failure: No Cardiogenic Shock w/in 24Hrs: No Cardiac Arrest w/in 24Hrs: No Imaging studies past 6 months: Yes Stress studies past 6 months: Yes Stress Echocardiogram: Yes - Positive Stress Testing w/SPECT MPI: No Cardiac CTA: No Coronary Anatomy Dominant: Right Left Main (% Stenosis): Normal (short) LAD (% Stenosis): Normal (Type 2) D1 (% Stenosis): Normal (arturo small) D2 (% Stenosis): Normal (very small) Circumflex (% Stenosis): Mid (20% phsiologic after OM origin) OM1 (% Stenosis): Normal (large bifurcatiing) L PL1 (% Stenosis): Normal RCA (% Stenosis): Normal R PDA (% Stenosis): Normal (long reaching to apex) R PL1 (% Stenosis): Normal Left Ventricular Angiography EF (%): 60 Mitral Regurgitation: None Diagnostic Physician's Name: Zach Chappell M.D. Status: Elective Closure Device Percutaneous Entry Location: Femoral Closure Device: Radial Band, none - manual hold Recommendations: Medical therapy and/or Counseling
--- NOTE | 2017-12-04 12:21 | Discharge Instructions ---
Discharge Instructions Procedure Procedure Date: Dec 04, 2017. Reason for Visit: Abnormal Stress Echo *Dr Chappell Doing*. Discharge Discharge Date: Dec 04, 2017. Discharge Diagnosis: Normal coronaries Last Recorded Wt (Kilograms): 68 Anesthesia Post Anesthesia Instructions: If you have had General Anesthesia or IV Sedation: * Do not drive today. * Resume driving when surgeon permits. * Do not make important decisions or sign legal documents today. * Call surgeon for: 1. Temperature elevations greater than 101 degrees F. 2. Uncontrollable pain. 3. Excessive bleeding. 4. Persistent nausea and vomiting. 5. Medication intolerance (nausea, vomiting or rash). * For nausea and vomiting use only clear liquids such as: tea, soda, bouillon until nausea subsides, then gradually increase diet as tolerated. * If you have any concerns or questions, call your surgeon's office. If physician is unavailable and it is an emergency, call 911 or go to the nearest emergency room. Instructions Activity Recommendations: limitations as noted below Recommended Home Diet: low cholesterol Allergies: Coded Allergies: Cephalosporins (Verified Allergy, Unknown, 02/28/17) Penicillins (Verified Allergy, Unknown, 02/28/17) Tetracyclines (Verified Allergy, Unknown, 02/28/17) Follow Up Additional Instructions: ACTIVITY RECOMMENDATIONS: It is common to feel weak and fatigue for a few days. * Do not drive or operate any motorized equipment for the next three days. * Limit stair usage (2 or 3 trips a day only) for the next three days. * Do not lift anything heavier than 10 pounds for the next three days. * Do not engage in vigorous exercise or any sports for the next five days. * You may shower the day after your procedure, but do not immerse the area for three days. Cleanse the site gently with soap and water. SPECIAL CARE INSTRUCTIONS: * You may replace the pressure dressing or band-aid the morning after the procedure. * After your procedure, it is normal to have a small bruise or small lump at the site. Examine your site daily for any change in the bruise or lump, redness, swelling, drainage or numbness. Notify your doctor if any change. BLEEDING: * If there is a small amount of bleeding at the site, lie down and apply firm pressure with a clean cloth for ten minutes. When the bleeding stops, lie quietly keeping the procedure limb straight for six hours. Notify your doctor as soon as possible. * If the bleeding does not stop after ten minutes or if there is a large amount of bleeding or spurting, call 911 immediately. Continue to lie down and hold firm pressure until help arrives. SKIN IRRITATION: * You may experience some redness and/or swelling in the area where radiation was administered. If any skin irritation occurs, please contact your family physician. FOLLOW UP VISIT: Keep any scheduled doctor appointments. Follow-up with: Dr Chappell 2-3 weeks [facility] Recommendations: Call your doctor if: * Temperature above 101 degrees * Pain not relieved by pain medicine ordered * There is increased drainage or redness from any incision * You have any unanswered questions or concerns. Your Doctors Instructions noted above were prepared by provider Zach Chappell. Patient Signature Section: Patient Instructions Signature Page Aleyda Mackenzie Patient (or Guardian) Signature/Date: I have read and understand the instructions given to me by my caregivers. Caregiver/RN/Doctor Signature/Date: The above-named patient and/or guardian has received patient instructions on this date. + Original Patient Signature Page (only) stays with chart. Please make copy for patient.
[2017-12-04 12:45] VITALS: BP 128/76; PULSE 74; O2SAT 96
== END ==
LOC: C.CATH 07:11
PROVIDERS: ATTEND Internal Medicine Cardiovascular Disease
DX: R07.9 Chest pain, unspecified (principal); R94.39 Abnormal result of other cardiovascular function study; Z88.0 Allergy status to penicillin; R03.0 Elevated blood-pressure reading, without diagnosis of hypertension; E78.5 Hyperlipidemia, unspecified

== ENCOUNTER → 2017-12-15 | Outpatient (CLI) | payer OTHER ==
[~2017-12-15] MED LIST changes: -NTRSL3 UT
== END | disposition home or self-care (01) ==
LOC: C.LABSPEC 15:59
PROVIDERS: ATTEND Obstetrics & Gynecology
DX: N89.8 Other specified noninflammatory disorders of vagina (principal)

== ENCOUNTER → 2017-12-15 | Outpatient (CLI) | payer OTHER | END | disposition home or self-care (01) | LOC: C.LAB1850 16:53 | PROVIDERS: ATTEND Obstetrics & Gynecology | DX: R36.9 Urethral discharge, unspecified (principal) ==

== ENCOUNTER → 2018-02-17 | Outpatient (CLI) | payer BC ==
[~2018-02-17] MED LIST changes: -METO25TA3 PO; +METO25TA4 PO; -NRV5 PO
[2018-02-17 11:07] LABS: BASO % 0.5 %; BASO ABS # 0.03 K/uL (0-0.2); EOS % 4.2 %; EOS ABS # 0.26 K/uL (0-0.5); HEMATOCRIT 42.1 % (37-47); HEMOGLOBIN 14.6 g/dL (12.0-16.0); IG# 0.01 K/uL (0.00-0.02); LYMPH % 34.1 %; LYMPH ABS # 2.09 K/uL (1.2-3.4); MEAN CELL VOLUME 95.5 fL (80-100); MEAN CORPUSCULAR HEMOGLOBIN 33.1 pg (25-34); MEAN CORPUSCULAR HGB CONC 34.7 g/dl (32-36); MEAN PLATELET VOLUME 10.4 fL (7.4-10.4); MONO % 6.5 %; NEUT % 54.5 %; NEUT ABS # 3.34 K/uL (1.4-6.5); PLATELET COUNT 214 K/uL (130-400); RED CELL DISTRIBUTION WIDTH CV 13.2 % (11.5-14.5); RED CELL DISTRIBUTION WIDTH SD 46.3 fL (36.4-46.3); WHITE BLOOD COUNT 6.13 K/uL (4.8-10.8)
[2018-02-17 11:30] LABS: ALBUMIN 3.7 gm/dl (3.4-5.0); ALT/SGPT 19 U/L (12-78); AST/SGOT 14 U/L (15-37); BLOOD UREA NITROGEN 16 mg/dl (7-18); CALCIUM 8.7 mg/dl (8.5-10.1); CARBON DIOXIDE 27 mmol/L (21-32); CHOLESTEROL 168 mg/dl (0-200); CREATININE 1.03 mg/dl (0.60-1.20); GLUCOSE 92 mg/dl (70-99); SODIUM 139 mmol/L (136-145); URIC ACID 6.1 mg/dl (2.6-7.2)
[2018-02-17 11:35] LABS: HEMOGLOBIN A1C 5.4 % (4.5-5.6)
[2018-02-17 11:40] LABS: ALKALINE PHOSPHATASE 59 U/L (45-117); LDL CHOLESTEROL CALCULATED 86 mg/dl; TOTAL PROTEIN 7.3 gm/dl (6.4-8.2); TRANSFERRIN 225 mg/dl (200-360)
== END | disposition home or self-care (01) ==
LOC: C.LABBC 09:05
PROVIDERS: ATTEND Family Medicine
DX: R73.09 Other abnormal glucose (principal); E55.9 Vitamin D deficiency, unspecified; D51.9 Vitamin B12 deficiency anemia, unspecified; E78.9 Disorder of lipoprotein metabolism, unspecified; R53.83 Other fatigue; I25.10 Atherosclerotic heart disease of native coronary artery without angina pectoris

== ENCOUNTER → 2018-03-04 | Outpatient (CLI) | payer BC | END | disposition home or self-care (01) | LOC: C.LABSPEC 17:19 | PROVIDERS: ATTEND Obstetrics & Gynecology | DX: N89.8 Other specified noninflammatory disorders of vagina (principal) ==

== ENCOUNTER → 2018-03-24 | Outpatient (CLI) | payer BC | END | disposition home or self-care (01) | LOC: C.MAMM 15:00 | PROVIDERS: ATTEND Obstetrics & Gynecology | DX: Z13.820 Encounter for screening for osteoporosis (principal) ==